=== PATIENT | male | born 1995 | race Caucasian/White ===

== ENCOUNTER 2018-07-30 08:34 | Emergency (ER) | payer BC ==
[2018-07-30] MEDS ORDERED: Famotidine TAB* 20 MG PO ONE (09:21)
[2018-07-30] MEDS ORDERED: Ondansetron ODT TAB* 4 MG PO ONE (09:21)
--- NOTE | 2018-07-30 09:32 | UC ---
Nausea/Vomiting/Diarrhea HPI - HPI Summary HPI Summary: 22-year-old male presents with sudden onset of abdominal pain and nausea at 5: 30 this morning. Patient states he induced vomiting around 7:00 this morning and had some relief in the abdominal pain with vomiting. States he has vomited 3 times this morning and initially was food contents and then just stomach contents. After the first episode of vomiting patient developed some epigastric burning which has persisted. Patient states he has been at a [employer] party last night and had 5-6 glasses of a vodka punch followed by 2 beers and then ordered [employer] pizza prior to going to sleep. Denies fever, chills, chest pain, palpitations, diaphoresis, or flank pain, diarrhea, or urinary symptoms. - History of Current Complaint Chief Complaint: UCChestPain Stated Complaint: VOMITING AND STOMACH PAIN Time Seen by Provider: 07/30/18 09:02 Hx Obtained From: Patient Pain Intensity: 5 - Allergies/Home Medications Allergies/Adverse Reactions: Allergies Allergy/AdvReac Type Severity Reaction Status Date / Time No Known Allergies Allergy Verified 07/30/18 09:01 Home Medications: Home Medications Simethicone [Gas-X Extra Strength] 250 mg PO ONCE PRN 07/30/18 [History Confirmed 07/30/18] PMH/Surg Hx/FS Hx/Imm Hx Previously Healthy: Yes - Denies significant PMH - Surgical History Surgical History: Yes Surgery Procedure, Year, and Place: wisdom teeth, left leg fx - Family History Known Family History: Positive: Non-Contributory - Social History Occupation: Student Lives: Dormitory/Roommates Alcohol Use: Weekly Alcohol Amount: 16 between Viry and Sat Substance Use Type: None Smoking Status (MU): Never Smoked Tobacco Review of Systems All Other Systems Reviewed And Are Negative: Yes Constitutional: Negative: Fever, Chills ENT: Negative: Sore Throat Respiratory: Negative: Shortness Of Breath, Cough Cardiovascular: Positive: Chest Pain - Epigastric burning. Negative: Palpitations Gastrointestinal: Positive: Abdominal Pain, Vomiting, Nausea. Negative: Diarrhea Genitourinary: Positive: Negative Musculoskeletal: Positive: Negative Neurological: Positive: Negative Is Patient Immunocompromised?: No Physical Exam - Summary Physical Exam Summary: GENERAL APPEARANCE: Well developed, well nourished, alert and cooperative, and appears to be in no acute distress. THROAT: Pharynx normal. No tonsilar inflammation, swelling, exudate, or lesions. Uvula midline. Oral cavity normal. Teeth and gingiva in good general condition. NECK: Neck supple, non-tender without lymphadenopathy. CARDIAC: Normal S1 and S2. No S3, S4 or murmurs. Rhythm is regular. There is no peripheral edema, cyanosis or pallor. Extremities are warm and well perfused. Capillary refill is less than 2 seconds. Peripheral pulses intact. LUNGS: Clear to auscultation without rales, rhonchi, wheezing or diminished breath sounds. ABDOMEN: Positive bowel sounds. Soft, nondistended, nontender. No guarding or rebound. No masses or hepatosplenomegally. MUSKULOSKELETAL: ROM intact to all extremities. No joint erythema or tenderness. Normal muscular development. Normal gait. SKIN: Skin normal color, texture and turgor with no lesions or eruptions. Triage Information Reviewed: Yes Vital Signs: Initial Vital Signs Temp 98.7 F 07/30/18 09:02 Pulse 68 07/30/18 09:02 Resp 18 07/30/18 09:02 BP 128/74 07/30/18 09:02 Pulse Ox 100 07/30/18 09:02 Vital Signs Reviewed: Yes Re-Evaluation - Re-Evaluation First Eval Re-Evaluation Time: 09:58 Change: Improved Comment: Patient resiting quietly with no further episodes of vomiting. States nausea subsided. Continues to have mild epigastric discomfort but improved. Abdomen soft, non-distended, and non-tender. Patient attempting PO fluid challenge at this time. Second Eval Re-Evaluation Time: 10:30 Change: Improved Comment: Patient tolerating PO fluids without any further episodes of vomiting. Will d/c home with prescription for ondansetron and oral hydration replacement. Naus/Vom/Diarrhea Course/Dx - Course Course Of Treatment: 22-year-old male presents with sudden onset of abdominal pain and nausea at 5:30 this morning. Patient states he induced vomiting around 7:00 this morning and had some relief in the abdominal pain with vomiting. States he has vomited 3 times this morning and initially was food contents and then just stomach contents. After the first episode of vomiting patient developed some epigastric burning which has persisted. Patient states he has been at a [employer] party last night and had 5-6 glasses of a vodka punch followed by 2 beers and then ordered [employer] pizza prior to going to sleep. Denies fever, chills, chest pain, palpitations, diaphoresis, or flank pain, diarrhea, or urinary symptoms. Afebrile. Vital signs stable. Exam reveals a young adult male in no acute distress with an overall unremarkable exam. He was given ondansetron 8 mg by mouth and famotidine 40 mg by mouth with improvement in symptoms. Able to tolerate PO fluid challenge with no further episodes of vomiting. Will give prescription for odansetron 4 mg Q6h as needed for N/V and recommend oral rehydration. He is to follow up here or with [facility] in 3 days if no improvement in symptoms. Anticipatory guidance and warning symptoms reviewed. Verbalizes understanding and agrees with POC. - Differential Dx/Diagnosis Differential Diagnoses - Male: Gall Bladder Disease, Peptic Ulcer Disease, Esophagitis/Gastritis, Gastroenteritis (Viral), Gastroenteritis (Bacterial), Vomiting Provider Diagnosis: Nausea & vomiting, Epigastric pain Condition At Discharge: Stable Discharge - Sign-Out/Discharge Documenting (check all that apply): Patient Departure All imaging exams completed and their final reports reviewed: No Studies - Discharge Plan Condition: Stable Disposition: HOME Prescriptions: Ondansetron [Ondansetron Odt] 4 mg PO Q6HR PRN #4 tab.rapdis PRN Reason: Nausea/Vomiting Patient Education Materials: Acute Nausea and Vomiting (ED) Referrals: No Primary Care Phys,NOPCP [Primary Care Provider] - Additional Instructions: Take ondansetron 1 tab every 6 hours as needed for nausea or vomiting. Your last dose was at 9:40 am. Drink plenty of fluids. Try to drink small amounts frequently to avoid filling your stomach to full which can cause vomiting. If you are still having vomiting, start with a clear liquid diet including soup broths, Jello, popsicles, and stella-rahel with carbonation stirred out of it. You may then advance to a bland diet including saltine crackers, toast, bananas , rice, and applesauce. Then return to a normal diet as tolerated. Follow up here or with the [facility] in 3-5 days if symptoms persist. Seek immediate medical attention in the emergency room if you develop fever greater than 100.5 F, have severe abdominal pain, persistent vomiting, blood in your vomit or stool, or any worsening of symptoms. - Billing Disposition and Condition Condition: STABLE Disposition: Home
[2018-07-30 10:42] VITALS: BP 142/54
== END 2018-07-30 10:43 | disposition home or self-care (01) ==
LOC: UCCORT 08:34
DX: R11.2 Nausea with vomiting, unspecified (principal); R10.13 Epigastric pain
CPT/HCPCS: 93005; 99202; A9270-GY; G0463